=== PATIENT | male | born 1960 | race Caucasian/White ===

== ENCOUNTER 2025-01-02 18:40 | Emergency (ER) | payer OTHER, SELFPAY ==
--- NOTE | ~2025-01-02 | XR_ITS ---
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 Technique: 2 views obtained. Findings: The lungs are clear, no effusion. No pneumothorax. Heart is normal size. Mediastinal and hilar contours are within normal limits. Bony thorax no acute abnormality. Impression: No acute cardiopulmonary abnormality. Reviewed, dictated and finalized at location P. R LEVER OPERATOR Impression: No acute cardiopulmonary abnormality.
[2025-01-02 18:49] VITALS: BP 165/90; PULSE 74; RESP 18; TEMP 36.6; O2SAT 98
--- NOTE | 2025-01-02 18:49 | ECG_ITS ---
Test Date: 2025-01-02 18:49:26 Measurements Intervals [place] Rate: 71 P: 0 MI: 0 QRS: 49 QRSD: 145 T: 75 QT: 458 QTc: 500 Interpretive Statements ATRIAL FIBRILLATION LEFT BUNDLE BRANCH BLOCK [120+ ms QRS DURATION, 80+ ms Q/S IN V1/V2, 85+ ms R IN I/aVL/V5/V6] No previous ECG available for comparison Electronically Signed On 01-03-2025 18:22:55 [employer]ESS[employer] by Brielle Aguila M.D.
--- NOTE | 2025-01-02 19:09 | ED_ITS ---
HPI - SOB/Dyspnea General Chief Complaint: Shortness of Breath/Dyspnea Stated Complaint: Difficulty breathing Time Seen by Provider: 01/02/25 18:59 Source: patient, family and EMS Mode of arrival: EMS Limitations: no limitations History of Present Illness HPI Narrative: This is a 64-year-old male with no significant past medical history but now former smoker of 2 months who presents to the ED for shortness of breath and wheezing. Patient states that over the past week or so, he has been having worsening cough and congestion. Today he had significant inspiratory and expiatory wheezing and was unable to walk to his car so EMS was called. He was given a breathing treatment EN route and he states that he does feel significantly better after that. He does not have any kind of breathing treatments or inhalers at home. He has not seen a doctor about 20 years. Denies fevers, chills, chest pain, nausea vomiting, diarrhea, constipation abdominal pain. Related Data Allergies Allergy/AdvReac Type Severity Reaction Status Date / Time NKDA Allergy Unknown Uncoded 08/17/02 11:50 NKFA Allergy Unknown Uncoded 08/17/02 11:50 Review of Systems Review of Systems: Gen.: Denies fevers or chills Eyes: Denies eye pain or visual change ENT: Denies congestion Respiratory: As per HPI CV: Denies chest pain or palpitations GI: Denies abdominal pain nausea, emesis or diarrhea denies burning, urgency, frequency or hematuria Musculoskeletal: Denies back pain or muscle pain Neuro: Denies numbness, tingling, weakness or focal weakness Skin: Denies rash Except as documented, all other systems reviewed and negative Exam Narrative: APPEARANCE: No acute distress, nontoxic, resting in bed EYES: EOMI HEENT: Normocephalic, atraumatic, OMM RESPIRATORY: No respiratory distress faint end-expiratory wheezes throughout CARDIOVASCULAR: Regular rate and rhythm without murmurs rubs or gallops. ABDOMINAL: Soft, nontender, nondistended, no rebound or guarding MUSCULOSKELETAl: Moves all extremities. No clubbing, cyanosis or edema. NEURO: Awake and alert. Following commands, speech normal, no focal deficits SKIN:: Warm, dry. No rashes lesions or abrasions PSYCHIATRIC: Normal affect/mood, Course Vital Signs Vital signs: Vital Signs Temperature 97.8 F 01/02/25 18:49 Pulse Rate 74 01/02/25 18:49 Respiratory Rate 18 01/02/25 18:49 Blood Pressure 165/90 H 01/02/25 18:49 Pulse Oximetry 98 01/02/25 18:49 Oxygen Delivery Room Air 01/02/25 18:49 Temperature 98.0 F 01/02/25 20:08 Pulse Rate 79 01/02/25 20:08 Respiratory Rate 24 H 01/02/25 20:08 Blood Pressure 160/91 H 01/02/25 20:08 Pulse Oximetry 96 01/02/25 20:08 Oxygen Delivery Room Air 01/02/25 20:06 Fraction of Inspired Oxygen 21 01/02/25 20:06 MDM - SOB/Dyspnea MDM Narrative Medical decision making narrative: 64-year-old male Presenting for shortness of breath. On initial evaluation pat ient was in no acute distress afebrile, hemodynamic stable. Differentials include but are not limited to: ACS, CHF Exacerbation, COPD exacerbation, PE, PNA, PTX, bronchitis, viral syndrome Notable exam findings: Mild and expiratory wheezes without respiratory distress Notable imaging findings: Chest x-ray showed no acute process. EKG without concerning findings. By the time patient presented to the ED, his symptoms had resolved after the [facility] by EMS. Patient likely had a COPD exacerbation but has not been officially diagnosed as of yet. He just quit smoking 2 months ago after smoking for many years. He was given a dose of prednisone here in the ED was given a prescription for prednisone. He was taught how to use an inhaler was given a prescription for an albuterol MDI. He was advised follow-up with his PCP in the next week for re-evaluation. Patient was agreeable to this plan. Given strict return precautions. Medical Records Attestation: I reviewed the patient's medical records. Imaging Data Attestation: I personally reviewed and interpreted this imaging study as follows: My impression: Chest x-ray: Normal cardiac silhouette, no consolidations, no pleural effusions, no pulmonary vascular congestion Radiologist's impression: Impressions Chest X-Ray 01/02/25 19:27 Impression: No acute cardiopulmonary abnormality. ECG Data EKG #1: Attestation: I personally reviewed and interpreted this ECG as follows: ECG completion date: 01/02/25 ECG completion time: 18:49 Interpretation: Normal sinus rhythm rate of 71 normal axis, left bundle-branch block no acute ST or T-wave changes Discharge Plan Discharge Clinical Impression: COPD exacerbation Patient Disposition: Home Condition: Stable Instructions: Antibiotic Form, COPD (Chronic Obstructive Pulmonary Disease) (ED) Additional Instructions: You likely had a COPD exacerbation. This did improve with a breathing treatment by EMS. We were given the 1st dose of a steroid here in the ED. You were given a prescription for steroids. Use the inhaler as prescribed. You were given a referral to Dr. Ribeiro, family medicine was to establish care, follow-up with their office in the next week for re-evaluation. Return the ED for any new or worsen ing symptoms. Patient Language: Nigerian Prescriptions: New prednisone 20 mg tablet 40 mg PO DAILY 4 Days Qty: 8 0RF albuterol sulfate [Ventolin HFA] 90 mcg/actuation HFA aerosol inhaler 2 puff inhalation QID PRN (Reason: shortness of breath or wheezing) Qty: 8.5 0RF Follow-up/Referrals: Kobi Townsend MD [Primary Care Provider, Family Practice]
[2025-01-02] MEDS: ALBUTEROL SULFATE (*SP) AEROSOL 1 PUFF 2 PUFF INHALATION (19:53)
[2025-01-02 20:06] VITALS: O2SAT 97
[2025-01-02 20:08] VITALS: BP 160/91; PULSE 79; RESP 24; TEMP 36.7; O2SAT 96
== END 2025-01-02 20:10 | disposition home or self-care (01) ==
PROVIDERS: Emergency Provider Student in an Organized Health Care Education/Training Program; PCP Family Medicine Adolescent Medicine
DX: J44.1 Chronic obstructive pulmonary disease with (acute) exacerbation (principal)
CPT/HCPCS: 71046; 93005; 94664; 99283; A9270; J7512